=== PATIENT | male | born 1980 | race Caucasian/White ===

== ENCOUNTER 2017-03-16 07:51 | Day surgery (SDC) | payer MEDICAID ==
[2017-03-16] MEDS ORDERED: LIDOCAINE 1% 5 ML SDV ID PRN (08:21)
[2017-03-16] MEDS ORDERED: LR 1,000 ML IV ONE (08:21)
[2017-03-16] MEDS ORDERED: fentaNYL 100 MCG/2 ML INJ ONE (08:30)
[2017-03-16] MEDS ORDERED: PROPOFOL 200 MG/20 ML VIAL ONE ×2 (08:30→08:38)
--- NOTE | 2017-03-16 09:21 | GPN ---
[f rep st] PROCEDURE NOTE PREPROCEDURE DIAGNOSIS: 1. Heartburn. 2. Gastroesophageal reflux. POSTPROCEDURE DIAGNOSIS: 1. Heartburn. 2. Gastroesophageal reflux. PROCEDURES: Esophagogastroduodenoscopy with biopsies. MEDICATIONS: Monitored anesthesia care. INDICATIONS: The patient is a 36-year-old gentleman with a history of esophageal reflux and heartbu rn. In the past he has been empirically dilated with a 54-[place] Savary dilator for dysphagia. He has had 2 previous upper endoscopies. The last was in July 2015. That procedure showed normal e sophagus, normal stomach, normal duodenum. Biopsies did not show evidence of eosinophilic esophagit is. He is here today for a repeat upper endoscopy for worsening heartburn symptoms. The risks and benefits of the procedure were discussed with the patient and consent obtained. Risks include, but are not limited to, bleeding, perforation, sedation. The patient is ASA class 2. DESCRIPTION OF PROCEDURE: The end-viewing endoscope was inserted into the esophagus, into the stoma ch and second portion of the duodenum. The esophagus appears normal. The Z-line is regular and loc ated 45 cm from the incisors. There was no evidence of Naylor esophagitis or varices. He has a sm all sliding hiatal hernia seen on retroflexion within the stomach. There is mild erythema throughou t the stomach. Biopsies were taken using cold biopsy forceps to evaluate for Helicobacter pylori. The duodenum and second portion is normal. Biopsies were taken using cold biopsy forceps. IMPRESSION: 1. Normal esophagus. No strictures or evidence of Naylor esophagus. Normal Z-line. 2. Small sliding hiatal hernia. 3. Mild gastritis, status post biopsies. 4. Normal duodenum, status post biopsies. RECOMMENDATION: 1. Discharge home with escort. 2. Advance diet as tolerated. 3. Continue current medications. 4. Follow up the final pathology results. Results are available within 10 days. Thank you for allowing me to participate in the care of your patient. Please do not hesitate to laura murillo with questions. /[id number]/MODL
== END 2017-03-16 09:55 | disposition home or self-care (01) ==
LOC: FSGY 07:51
PROVIDERS: ATTEND Internal Medicine Gastroenterology
PROC: 0DB68ZX Excision of Stomach, Via Natural or Artificial Opening Endoscopic, Diagnostic (ICD-10-PCS; principal; 2017-03-16 09:15)
PROC: 0DB98ZX Excision of Duodenum, Via Natural or Artificial Opening Endoscopic, Diagnostic (ICD-10-PCS; principal; 2017-03-16 09:15)
DX: K21.9 Gastro-esophageal reflux disease without esophagitis (principal); R12 Heartburn; K44.9 Diaphragmatic hernia without obstruction or gangrene; K29.70 Gastritis, unspecified, without bleeding
CPT/HCPCS: J2704; J3010